=== PATIENT | male | born 1935 ===

== ENCOUNTER 2020-02-25 11:23 | Inpatient (IN) ==
[2020-02-25] MEDS ORDERED: GLUCAGON 1 MG VIAL IM PRN (14:01)
[2020-02-25] MEDS ORDERED: DEXTROSE 50% 25 GM/50 ML VIAL IV PRN (14:01)
[2020-02-25] MEDS ORDERED: ENOXAPARIN 40 MG/0.4 ML SYRINGE SUBCUT SCH (14:30)
[2020-02-25] MEDS: HEPARIN 5,000 UNIT/1 ML VIAL SUBCUT SCH ×2 (15:49→23:25)
[2020-02-25] MEDS: SODIUM CHLORIDE 0.9% 1,000 ML IV SCH (16:17)
[2020-02-25] MEDS: clonazePAM 0.5 MG TABLET PO SCH (21:15)
[2020-02-26] MEDS: SODIUM CHLORIDE 0.9% 1,000 ML IV SCH ×3 (00:25→22:26)
[2020-02-26 02:22] LABS: Hematocrit 41.8 VOL% (42.0-52.0); Hemoglobin 14.2 GM/DL (14.0-18.0); Immature Granulocytes % 0.2 %; Immature Granulocytes Absolute 0.01 #; Lymphocytes # 0.8 10*3/uL (1.4-4.0); Lymphocytes % 17.5 % (21.2-54.2); Mean Corpuscular Volume 94.6 FL (87-102); Mean Platelet Volume 9.9 FL (9.6-12.0); Monocytes % 12.1 % (1.7-12.7); Neutrophils % 70.2 % (38.7-73.9); Platelet Count 156 T/CUMM (130-400); Red Blood Count 4.42 MC/CUMM (3.8-5.5); Red Cell Distribution Width 13.4 % (9.3-17.3); White Blood Count 4.3 T/CUMM (4-12)
[2020-02-26 02:55] LABS: Band Neutrophils 5 % (0-10); Lymphocytes 20 % (20-55); Metamyelocytes 2 %; Platelet Estimate Adequate; Segmented Neutrophils 61 % (50-85); Total Cells Counted 100
[2020-02-26] MEDS: HEPARIN 5,000 UNIT/1 ML VIAL SUBCUT SCH ×3 (06:10→23:33)
[2020-02-26] MEDS: TAMSULOSIN 0.4 MG CAPSULE PO SCH (08:27)
[2020-02-26] MEDS: clonazePAM 0.5 MG TABLET PO SCH ×2 (08:27→21:23)
[2020-02-26] MEDS ORDERED: INFLUENZA VIRUS VACCINE 0.5 ML SYRINGE IM ONE (10:28)
[2020-02-26] MEDS: ASPIRIN EC 81 MG TABLET PO SCH (14:27)
[2020-02-26] MEDS ORDERED: AZITHROMYCIN 250 MG TABLET PO ONE (14:35)
[2020-02-26] MEDS: ACETAMINOPHEN 325 MG TABLET PO PRN (16:30)
[2020-02-27 00:50] LABS: Allen Test Positive
[2020-02-27 00:52] LABS: ABG Base Excess -3.4 MMOL/L (-2.5-2.5); ABG HCO3 21.5 MMOL/L (20-26); ABG Oxygen Saturation 94.8 % (95-100); ABG PCO2 36.7 MM HG (35-48); ABG PH 7.371 (7.35-7.45); ABG PO2 73.6 MM HG (80-95); ABG TCO2 18.4 MMOL/L (23-27)
[2020-02-27] MEDS: ACETAMINOPHEN 325 MG TABLET PO PRN (04:05)
[2020-02-27 04:39] LABS: ABG Base Excess -3.2 MMOL/L (-2.5-2.5); ABG HCO3 21.7 MMOL/L (20-26); ABG Oxygen Saturation 93.1 % (95-100); ABG PO2 65.4 MM HG (80-95); ABG TCO2 18.5 MMOL/L (23-27); Allen Test Positive; Pt O2 Delivery Device Other
[2020-02-27 05:32] LABS: Basophils % 0.2 % (0.0-0.8); Hematocrit 39.6 VOL% (42.0-52.0); Hemoglobin 13.4 GM/DL (14.0-18.0); Immature Granulocytes % 0.5 %; Immature Granulocytes Absolute 0.02 #; Lymphocytes # 0.5 10*3/uL (1.4-4.0); Lymphocytes % 11.8 % (21.2-54.2); Mean Corpuscular HGB Conc 33.8 GM/DL (32-36); Mean Corpuscular Volume 94.7 FL (87-102); Mean Platelet Volume 9.9 FL (9.6-12.0); Monocytes % 8.8 % (1.7-12.7); Neutrophils % 78.7 % (38.7-73.9); Platelet Count 167 T/CUMM (130-400); Red Blood Count 4.18 MC/CUMM (3.8-5.5); Red Cell Distribution Width 13.8 % (9.3-17.3); White Blood Count 4.3 T/CUMM (4-12)
[2020-02-27 06:06] LABS: Calcium 7.8 MG/DL (8.5-10.1)
[2020-02-27] MEDS: HEPARIN 5,000 UNIT/1 ML VIAL SUBCUT SCH ×2 (06:27→15:00)
[2020-02-27] MEDS: SODIUM CHLORIDE 0.9% 1,000 ML IV SCH (06:27)
[2020-02-27] MEDS: clonazePAM 0.5 MG TABLET PO SCH ×2 (08:27→21:11)
[2020-02-27] MEDS: TAMSULOSIN 0.4 MG CAPSULE PO SCH (08:27)
[2020-02-27] MEDS: ASPIRIN EC 81 MG TABLET PO SCH (08:27)
[2020-02-27] MEDS ORDERED: DEXAMETHASONE 4 MG TABLET PO SCH (09:00)
[2020-02-27] MEDS ORDERED: AZITHROMYCIN 250 MG TABLET PO SCH (09:00)
[2020-02-27] MEDS ORDERED: REMDESIVIR 200 MG in SODIUM CHLORIDE 0.9% 210 ML IV ONE (15:00)
[2020-02-28] MEDS: HEPARIN 5,000 UNIT/1 ML VIAL SUBCUT SCH ×2 (00:17→06:17)
[2020-02-28 04:21] LABS: ABG Base Excess -2.5 MMOL/L (-2.5-2.5); ABG HCO3 22.1 MMOL/L (20-26); ABG Oxygen Saturation 88.3 % (95-100); ABG PCO2 31.9 MM HG (35-48); ABG PH 7.423 (7.35-7.45); ABG PO2 51.8 MM HG (80-95); ABG TCO2 17.7 MMOL/L (23-27); Allen Test Positive
[2020-02-28] MEDS: ACETAMINOPHEN 325 MG TABLET PO PRN (04:21)
[2020-02-28 04:43] LABS: Basophils % 0.1 % (0.0-0.8); Hematocrit 45.9 VOL% (42.0-52.0); Hemoglobin 15.6 GM/DL (14.0-18.0); Immature Granulocytes % 0.4 %; Immature Granulocytes Absolute 0.04 #; Lymphocytes # 0.7 10*3/uL (1.4-4.0); Lymphocytes % 7.1 % (21.2-54.2); Mean Corpuscular Volume 93.5 FL (87-102); Monocytes % 5.8 % (1.7-12.7); Neutrophils % 86.6 % (38.7-73.9); Platelet Count 211 T/CUMM (130-400); Red Blood Count 4.91 MC/CUMM (3.8-5.5); Red Cell Distribution Width 13.9 % (9.3-17.3); White Blood Count 9.9 T/CUMM (4-12)
[2020-02-28 04:44] VITALS: BP 147/83
[2020-02-28 05:15] LABS: Osmolality,Calculated 280.7 MOS/KG (273-304)
[2020-02-28 05:17] LABS: Bilirubin,Total 0.6 MG/DL (0.2-1.0)
[2020-02-28 06:54] LABS: ABG Base Excess -1.7 MMOL/L (-2.5-2.5); ABG HCO3 22.8 MMOL/L (20-26); ABG Oxygen Saturation 89.6 % (95-100); ABG PCO2 31.6 MM HG (35-48); ABG PH 7.439 (7.35-7.45); ABG PO2 53.3 MM HG (80-95); ABG TCO2 18.4 MMOL/L (23-27)
[2020-02-28 07:35] LABS: ABG Base Excess -1.6 MMOL/L (-2.5-2.5); ABG HCO3 22.9 MMOL/L (20-26); ABG Oxygen Saturation 90.3 % (95-100); ABG PCO2 34.6 MM HG (35-48); ABG PH 7.416 (7.35-7.45); ABG PO2 56.3 MM HG (80-95); ABG TCO2 19.2 MMOL/L (23-27)
[2020-02-28] MEDS ORDERED: REMDESIVIR 100 MG in SODIUM CHLORIDE 0.9% 230 ML IV SCH (09:00)
== END 2020-02-28 08:38 | disposition expired | DRG 177 ==
LOC: N.2E 13:13 → INTOOBSV 13:13 → SUATTDRO 13:13 → N.CC 02-28 03:53
PROVIDERS: ADMIT Internal Medicine; ATTEND Internal Medicine